=== PATIENT | male | born 1985 | race African-American/Black ===

== ENCOUNTER 2018-06-19 17:31 | Emergency (ER) | payer OTHER ==
[2018-06-19 17:38] VITALS: BP 139/86
[2018-06-19] MEDS ORDERED: AZITHROMYCIN 250 MG TABLET PO ONE (17:58)
[2018-06-19] MEDS ORDERED: CEFTRIAXONE INJ 250 MG VIAL IM ONE (17:58)
[2018-06-19] MEDS ORDERED: LIDOCAINE 1% INJ-PF (10 MG/ML) 30 ML SDV INJ ONE (17:58)
--- NOTE | 2018-06-19 17:59 | ER Document Report ---
ED GI/ - General Chief Complaint: Urinary Problem Stated Complaint: URINARY ISSUE Time Seen by Provider: 06/19/18 17:38 Mode of Arrival: Ambulatory Information source: Patient Notes: 32-year-old male presents to ED for complaint of pain with urination and penile "dribbling or drainage "for 2 days. He states he also has a small lump on the left groin area. He states he does sometimes gets bumps on his penis and groin when he shaves. Patient is alert and oriented respirations regular and unlabored speaking in full sentences. He states he has not had any unprotected sex with anybody but his and is already had "conversations "with his . TRAVEL OUTSIDE OF THE [place] IN LAST 30 DAYS: No - HPI Patient complains to provider of: Other - Painful urination and possible penile drainage 2 days Onset: Other - 2 days Timing/Duration: Gradual Quality of pain: Burning Severity at maximum: Moderate Severity in ED: Mild Pain Level: 1 Location: Other - Pain with urination which is actually getting better and penile drainage or "dribbling" he states he also has some shave bumps and a small knot on the left groin Sexual history: Active Associated symptoms: Penile discharge, Other - Burning with urination Exacerbated by: Other - Urination Relieved by: Denies Similar symptoms previously: No Recently seen / treated by doctor: No - Related Data Allergies/Adverse Reactions: No Known Allergies Allergy (Verified 06/19/18 17:32) Past Medical History - General Information source: Patient - Social History Smoking Status: Current Every Day Smoker Cigarette use (# per day): Yes - 1/2 ppd Smoking Education Provided: Yes - 4 min Frequency of alcohol use: Social Drug Abuse: None Lives with: Family Family History: Reviewed & Not Pertinent Patient has suicidal ideation: No Patient has homicidal ideation: No - Past Medical History Cardiac Medical History: Reports: None Pulmonary Medical History: Reports: None EENT Medical History: Reports: None Neurological Medical History: Reports: None Endocrine Medical History: Reports: None Renal/ Medical History: Reports: None Malignancy Medical History: Reports None GI Medical History: Reports: None Musculoskeletal Medical History: Reports None Skin Medical History: Reports None Psychiatric Medical History: Reports: Hx Depression Traumatic Medical History: Reports: None Infectious Medical History: Reports: None Surgical Hx: Negative Past Surgical History: Reports: None - Immunizations Hx Diphtheria, Pertussis, Tetanus Vaccination: Yes Review of Systems - Review of Systems Constitutional: No symptoms reported EENT: No symptoms reported Cardiovascular: No symptoms reported Respiratory: No symptoms reported Gastrointestinal: No symptoms reported Genitourinary: Burning Male Genitourinary: Penile discharge Musculoskeletal: No symptoms reported Skin: No symptoms reported Hematologic/Lymphatic: No symptoms reported Neurological/Psychological: No symptoms reported -: Yes All other systems reviewed and negative Physical Exam - Vital signs Vitals: Temp Pulse Resp BP Pulse Ox 98.7 F 82 16 139/86 H 98 06/19/18 17:35 06/19/18 17:35 06/19/18 17:35 06/19/18 17:35 06/19/18 17:35 Interpretation: Normal - General General appearance: Appears well, Alert - HEENT Head: Normocephalic, Atraumatic Eyes: Normal Pupils: PERRL - Respiratory Respiratory status: No respiratory distress Chest status: Nontender Breath sounds: Normal Chest palpation: Normal - Cardiovascular Rhythm: Regular Heart sounds: Normal auscultation Murmur: No - Abdominal Inspection: Normal Distension: No distension Bowel sounds: Normal Tenderness: Nontender Organomegaly: No organomegaly - Genitourinary Inspection: Penile discharge Notes: Small enlarged tender lymph node in the left groin. Patient also has several razor tamayo to the penis was shaved and which caused these bumps. - Back Back: Normal, Nontender - Extremities General upper extremity: Normal inspection, Nontender, Normal color, Normal ROM, Normal temperature General lower extremity: Normal inspection, Nontender, Normal color, Normal ROM, Normal temperature, Normal weight bearing. No: Cornelius's sign - Neurological Neuro grossly intact: Yes Cognition: Normal Orientation: AAOx4 Schuyler Coma Scale Eye Opening: Spontaneous Carmen Coma Scale Verbal: Oriented Carmen Coma Scale Motor: Obeys Commands Schuyler Coma Scale Total: 15 Speech: Normal Motor strength normal: LUE, RUE, LLE, RLE Sensory: Normal - Psychological Associated symptoms: Normal affect, Normal mood - Skin Skin Temperature: Warm Skin Moisture: Dry Skin Color: Normal Course - Re-evaluation Re-evalutation: 06/19/18 19:56 His GC and Chlamydia test were negative. Patient was informed that his GC and chlamydia tests were negative. Patient did not wait in the emergency room for the results of his test so he was treated with Rocephin and azithromycin before leaving. Patient was encouraged to drink more fluids as his specific gravity was a little elevated. Patient was instructed to follow-up with his primary care doctor. - Vital Signs Vital signs: Temp Pulse Resp BP Pulse Ox 98.7 F 82 16 139/86 H 98 06/19/18 17:35 06/19/18 17:35 06/19/18 17:35 06/19/18 17:35 06/19/18 17:35 - Laboratory Laboratory results interpreted by me: 06/19/18 17:40 Urine Ketones TRACE H Urine Ascorbic Acid 40 H Discharge - Discharge Clinical Impression: Pain with urination Condition: Stable Disposition: HOME, SELF-CARE Additional Instructions: Urethritis You have urethritis, an infection of the urethra. The usual symptoms are pain on urination and discharge. The infection is often caused by gonorrhea or chlamydia. Treatment is antibiotics. In addition, any sexual contacts should be evaluated by a physician as soon as possible. As this infection can be transmitted sexually, refrain from sexual activity until the infection is co nfirmed as healed by your physician. If gonorrhea or chlamydia is found on culture, the health department must be notified. Call the doctor at once if you develop difficulty passing your urine, high fever, rash, joint swelling, or other new symptoms. CEPHALOSPORINS: An antibiotic of the cephalosporin class has been prescribed. This type of antibiotic covers a wide variety of infections, including those of the skin, lungs, middle ear, and urinary tract. This antibiotic is somewhat similar to the penicillin family. In rare cases, a person who is allergic to penicillin will also be allergic to this medication. If you have had a severe allergic reaction to penicillin, and have not taken this antibiotic since that time, notify your doctor. Antibiotics which cover many germs ("broad spectrum" antibiotics) are more likely to cause diarrhea or "yeast" infections. Women prone to vaginal yeast problems may suffer an attack after taking this antibiotic. In infants, oral thrush (white spots "stuck" on the cheek) or yeast diaper rash may result. See your doctor if these problems occur. Call the doctor at once if you develop hives, itching, shortness of breath, or lightheadedness. AZITHROMYCIN: Azithromycin (Zithromax) is a broad spectrum antibiotic in the same class as erythromycin. It can treat a variety of bacterial infections, but is most frequently used for respiratory infections. Azithromycin is extremely long-lasting. It accumulates in body tissues and continues to kill bacteria for many days. In order to improve absorption, Azithromycin should be taken at least one hour before or two hours after a meal. It does not have the same strong tendency to upset the stomach as erythromycin and is usually very well tolera yoon. Patients who have had a rash or other true allergic reactions to erythromycin should not take this medication. Call if you develop gastrointestinal distress, severe diarrhea, rash, hives, itching, or shortness of breath. You have been treated with Rocephin and azithromycin in the emergency room. Your urine does not show a urinary tract infection it does show that you need to drink more water. You need to call [phone] in 2 hours to get the results of your GC and chlamydia. Please did not have any sexual intercourse until you have spoken with me for your results. FOLLOW-UP CARE: If you have been referred to a physician for follow-up care, call the physicians office for an appointment as you were instructed or within the next two days. If you experience worsening or a significant change in your symptoms, notify the physician immediately or return to the Emergency Department at any time for re-evaluation. Forms: Elevated Blood Pressure, Smoking Cessation Education, Return to Work Referrals: KAYODE HOWE MD [Primary Care Provider] - Follow up as needed
[2018-06-19 18:18] LABS: APPEARANCE,URINE CLEAR; BILIRUBIN,URINE NEGATIVE (NEGATIVE); COLOR,URINE YELLOW; GLUCOSE, URINE NEGATIVE (NEGATIVE); KETONES,URINE TRACE mg/dL (NEGATIVE); LEUKOCYTE ESTERASE,URINE NEGATIVE (NEGATIVE); NITRITE,URINE NEGATIVE (NEGATIVE); PROTEIN,URINE NEGATIVE (NEGATIVE); URINE SPECIFIC GRAVITY 1.029; UROBILINOGEN,URINE NEGATIVE mg/dL (<2.0)
[2018-06-19 19:39] LABS: CHLAM PCR NOT DETECTED (NOT DETECT); GON PCR NOT DETECTED (NOT DETECT)
== END 2018-06-19 18:35 | disposition home or self-care (01) ==
LOC: ER 17:31
DX: R30.0 Dysuria (principal); F17.210 Nicotine dependence, cigarettes, uncomplicated
CPT/HCPCS: 99406; 99283; 96372; 81001; 87491; 87591; J3490; J0696

== ENCOUNTER 2018-07-02 07:55 | Emergency (ER) | payer OTHER ==
[2018-07-02] MEDS ORDERED: NORMAL SALINE 1000 ML 1,000 ML IV ONE (09:25)
[2018-07-02] MEDS ORDERED: DIPHENHYDRAMINE HCL 50 MG/ML VIAL IV ONE (09:25)
[2018-07-02] MEDS ORDERED: METOCLOPRAMIDE HCL INJ/PF 10 MG/2 ML SDV IV ONE (09:25)
--- NOTE | 2018-07-02 09:25 | ER Document Report ---
ED Headache - General Mode of Arrival: Ambulatory Information source: Patient TRAVEL OUTSIDE OF THE [place] IN LAST 30 DAYS: No <AUBREY GROSS - Last Filed: 07/02/18 10:45> <YAHIR ADAMS - Last Filed: 07/02/18 11:06> - General Chief Complaint: Headache >24 hrs old Stated Complaint: HEADACHE, VOMITING Time Seen by Provider: 07/02/18 09:16 Notes: 32 year old male that presents to the emergency department today with complaints of a headache for the last 2 days with associated vomiting. Patient describes the headache as being posterior. Patient states he had a cough last week but that has since subsided. (AUBREY GROSS) - Related Data Allergies/Adverse Reactions: No Known Allergies Allergy (Verified 07/02/18 08:00) Past Medical History - General Information source: Patient - Social History Smoking Status: Current Every Day Smoker Family History: Reviewed & Not Pertinent Psychiatric Medical History: Reports: Hx Depression Surgical Hx: Negative - Immunizations Hx Diphtheria, Pertussis, Tetanus Vaccination: Yes <AUBREY GROSS - Last Filed: 07/02/18 10:45> Review of Systems - Review of Systems Constitutional: No symptoms reported EENT: No symptoms reported Cardiovascular: No symptoms reported Respiratory: No symptoms reported Gastrointestinal: See HPI, Vomiting Genitourinary: No symptoms reported Male Genitourinary: No symptoms reported Musculoskeletal: No symptoms reported Skin: No symptoms reported Hematologic/Lymphatic: No symptoms reported Neurological/Psychological: See HPI, Headaches -: Yes All other systems reviewed and negative <AUBREY GROSS - Last Filed: 07/02/18 10:45> Physical Exam <AUBREY GROSS - Last Filed: 07/02/18 10:45> - Vital signs Vitals: Temp Pulse Resp BP Pulse Ox 98.9 F 64 16 115/70 98 07/02/18 08:08 07/02/18 08:08 07/02/18 08:08 07/02/18 08:08 07/02/18 08:08 - Notes Notes: Physical Exam: General: Alert, actively vomiting into trash can during exam. HEENT: Normocephalic. Atraumatic. PERRL. Extraocular movements intact. Oropharynx clear. No scalp musculature tenderness with palpation. No tenderness with percussion of the sinuses. Neck: Supple. Non-tender. No posterior cervical musculature tenderness with palpation. Respiratory: No respiratory distress. Clear and equal breath sounds bilaterally. Cardiovascular: Regular rate and rhythm. Abdominal: Normal Inspection. Non-tender. No distension. Normal Bowel Sounds. Back: Non-tender. No deformity or step off. Extremities: Moves all four extremities. Upper extremities: Normal inspection. Normal ROM. Lower extremities: Normal inspection. No edema. Normal ROM. Neurological: Normal cognition. AAOx4. Normal speech. Psychological: Normal affect. Normal Mood. Skin: Warm. Dry. Normal color. (AUBREY GROSS) Course - Laboratory Result Diagrams: 07/02/18 09:15 07/02/18 09:15 <AUBREY GROSS - Last Filed: 07/02/18 10:45> - Laboratory Result Diagrams: 07/02/18 09:15 07/02/18 09:15 - Diagnostic Test Radiology reviewed: Image reviewed, Reports reviewed - Normal brain CT <YAHIR ADAMS - Last Filed: 07/02/18 11:06> - Re-evaluation Re-evalutation: 07/02/18 11:03 On reevaluation, the patient is sleeping. When he was awakened, he reports his headache is much better. CT scan of the brain was unremarkable, CBC and Chem-12 are unremarkable. His neck is supple and has been the entire time. Palpating the posterior cervical and cranial muscles did not alter his discomfort, so this may be a migraine type headache. (YAHIR ADAMS) - Vital Signs Vital signs: Temp Pulse Resp BP Pulse Ox 98.9 F 64 16 115/70 98 07/02/18 08:08 07/02/18 08:08 07/02/18 08:08 07/02/18 08:08 07/02/18 08:08 - Laboratory Laboratory results interpreted by me: 07/02/18 09:15 Glucose 124 H Total Bilirubin 2.0 H Total Protein 8.4 H Discharge <AUBREY GROSS - Last Filed: 07/02/18 10:45> <YAHIR ADAMS - Last Filed: 07/02/18 11:06> - Discharge Clinical Impression: Headache Qualifiers: Headache type: unspecified Headache chronicity pattern: acute headache Intractability: not intractable Qualified Code(s): R51 - Headache Vomiting Qualifiers: Vomiting type: unspecified Vomiting Intractability: non-intractable Nausea presence: with nausea Qualified Code(s): R11.2 - Nausea with vomiting, unspecified Condition: Stable Disposition: HOME, SELF-CARE Additional Instructions: Headache: The physician does not feel that the headache you are experiencing has a serious underlying cause. Most headaches are due to emotional stress, with resultant muscle tension (tension headache). Occasionally, headaches are secondary to changes in the blood vessels of the scalp (vascular headache and migraine headache). Sometimes, a headache is the first symptom of another developing illness, such as a viral infection. You have no evidence of stroke, bleeding, meningitis, or other serious cause of your headache. The treatment of headaches varies with the severity and cause of the pain. Not all headaches need pain shots. In fact, there is evidence that using narcotics for headaches may make them worse in the long run. The physician will determine the therapy that's in your best interest. If you develop a fever, if the headache is different from any you've previously experienced, or if the headache progressively worsens, then call your physician at once or go to the emergency room. Take Tylenol and ibuprofen for your headache as needed. Take Benadryl for nausea and headache relief as needed. Drink small sips of cool clear liquids throughout the day in the evening today. Follow-up with your primary care provider tomorrow if not improving. RETURN TO THE EMERGENCY ROOM IF ANY NEW OR WORSENING SYMPTOMS. Referrals: KAYODE HOWE MD [NO LOCAL MD] - Follow up as needed Scribe Attestation: 07/02/18 10:14 I personally performed the services described in the documentation, reviewed and edited the documentation which was dictated to the scribe in my presence, and it accurately records my words and actions. (YAHIR ADAMS) Scribe Documentation - Scribe Written by Scribe:: Abhinav Doty, 07/02/2018 [id number] acting as scribe for :: Mani <AUBREY GROSS - Last Filed: 07/02/18 10:45>
--- NOTE | 2018-07-02 09:54 | RADIOLOGY REPORT (SQ) ---
EXAM DESCRIPTION: CT HEAD WITHOUT COMPLETED DATE/TIME: 07/02/2018 9:43 am REASON FOR STUDY: CHÁVEZ w/ vomitting X 2 days COMPARISON: None. TECHNIQUE: Axial images acquired through the brain without intravenous contrast. Images reviewed wi th bone, brain and subdural windows. Images stored on PACS. All CT scanners at this facility use dose modulation, iterative reconstruction, and/or weight based d osing when appropriate to reduce radiation dose to as low as reasonably achievable (ALARA). [facility]: Dose Right [facility]: CareDose [facility]: Dose Right [facility]: Teradose 4D [facility]: Smart OfferWire RADIATION DOSE: CT Rad equipment meets quality standard of care and radiation dose reduction techniq ues were employed. CTDIvol: 53.2 mGy. DLP: 1097 mGy-cm. mGy. LIMITATIONS: None. FINDINGS: VENTRICLES: Normal size and contour. CEREBRUM: No masses. No hemorrhage. No midline shift. No evidence for acute infarction. Normal gra y/white matter differentiation. No areas of low density in the white matter. CEREBELLUM: No masses. No hemorrhage. No alteration of density. No evidence for acute infarction. EXTRAAXIAL SPACES: No fluid collections. No masses. ORBITS AND GLOBE: No intra- or extraconal masses. Normal contour of globe without masses. CALVARIUM: No fracture. PARANASAL SINUSES: No fluid or mucosal thickening. SOFT TISSUES: No mass or hematoma. OTHER: No other significant finding. IMPRESSION: NORMAL BRAIN CT WITHOUT CONTRAST. EVIDENCE OF ACUTE STROKE: NO. COMMENT: Quality ID # [id number]: Final reports with documentation of one or more dose reduction techniques (e.g., Automated exposure control, adjustment of the mA and/or kV according to patient size, use of iterative reconstruction technique) TECHNICAL DOCUMENTATION: JOB ID: [id number] 2010 [employer]- All Rights Reserved Reading location - IP/workstation name: [email or web address]
[2018-07-02 10:09] LABS: ABSOLUTE MONOCYTES (AUTO) 0.5 10^3/uL (0.1-1.4); ABSOLUTE NEUT (AUTO) 5.1 10^3/uL (1.7-8.2); BASOPHILS % (AUTO) 0.4 % (0-2); HEMATOCRIT 44.6 % (37.9-51.0); HEMOGLOBIN 14.9 g/dL (13.5-17.0); LYMPHOCYTES % (AUTO) 14.9 % (13-45); MEAN CORPUSCULAR HEMOGLOBIN 30.5 pg (27.0-33.4); MEAN CORPUSCULAR HGB CONC 33.3 g/dL (32.0-36.0); MEAN CORPUSCULAR VOLUME 92 fl (80-97); MONOCYTES % (AUTO) 7.9 % (3-13); PLATELET COUNT 191 10^3/uL (150-450); RED BLOOD COUNT 4.87 10^6/uL (4.35-5.55); SEGMENTED NEUTROPHILS % (AUTO) 76.8 % (42-78); TOTAL CELLS COUNTED % (AUTO) 100 %; WHITE BLOOD COUNT 6.6 10^3/uL (4.0-10.5)
[2018-07-02 10:39] LABS: ALANINE AMINOTRANSFERASE 22 U/L (21-72); ALBUMIN 4.8 g/dL (3.5-5.0); ALKALINE PHOSPHATASE 55 U/L (38-126); ANION GAP 12 (5-19); ASPARTATE AMINO TRANSFERASE 27 U/L (17-59); BILIRUBIN,DIRECT 0.2 mg/dL (0.0-0.4); BLOOD UREA NITROGEN 14 mg/dL (7-20); CALCIUM 10.1 mg/dL (8.4-10.2); CARBON DIOXIDE 26 mmol/L (22-30); CHLORIDE 101 mmol/L (98-107); GLUCOSE 124 mg/dL (75-110); POTASSIUM 4.4 mmol/L (3.6-5.0); SODIUM 139.3 mmol/L (137-145); TOTAL PROTEIN 8.4 g/dL (6.3-8.2)
[2018-07-02 11:17] VITALS: BP 118/78
== END 2018-07-02 11:16 | disposition home or self-care (01) ==
LOC: ER 07:55
DX: R51 Headache (principal); R11.2 Nausea with vomiting, unspecified; F17.200 Nicotine dependence, unspecified, uncomplicated
CPT/HCPCS: 99284; 96361; 96374; 96375; 36415; 85025; 80053; 70450; J1200; J2765; J7030